=== PATIENT | female | born 1950 | race African-American/Black ===

== ENCOUNTER 2018-09-28 15:52 | Emergency (ER) | payer MEDICARE ==
[2018-09-28 16:25] LABS: BASO % 0.5 % (0.0-1.0); EOS # 0.1 10^3/uL (0.0-0.50); EOS % 1.9 % (0.0-3.0); HEMATOCRIT 40.6 % (36.0-47.0); HEMOGLOBIN 12.9 g/dl (12.0-15.5); LYMPH # 1.7 10^3/uL (1.5-4.5); LYMPH % 25.9 % (24.0-44.0); MEAN CORPUSCULAR HGB CONC 31.8 g/dl (32.0-36.5); MEAN CORPUSCULAR VOLUME 81.9 fl (80.0-96.0); MONO # 0.5 10^3/uL (0.0-0.8); MONO % 8.5 % (0.0-5.0); NEUTROPHILS % 62.9 % (36.0-66.0); PLATELET COUNT, AUTOMATED 172 10^3/uL (150-450); RED BLOOD COUNT 4.96 10^6/uL (4.00-5.40); WHITE BLOOD COUNT 6.4 10^3/uL (4.0-10.0)
[2018-09-28] MEDS ORDERED: JANU50TA4 PO (16:28)
[2018-09-28] MEDS ORDERED: ASPI81TA85 PO (16:28)
[2018-09-28] MEDS ORDERED: D 1010004 PO (16:28)
[2018-09-28] MEDS ORDERED: AMLO10TA5 PO (16:28)
[2018-09-28] MEDS ORDERED: ATOR40TA75 PO (16:28)
--- NOTE | 2018-09-28 16:36 | REP ---
Clinical: Trauma . Comparison: None . Findings: The ventricles, sulci, and cisterns are normal in position and appearance. Hkan-white differentiation is maintained. No acute intracranial hemorrhage, mass/mass effect, pathology or trauma/injury. No evidence for acute infarction. No extra-axial fluid collection. Calvarium is intact. Paranasal sinuses and mastoid air cells are clear. Impression: Normal noncontrast head CT. No evidence for acute intracranial pathology or trauma/injury. Electronically Signed by Teddy Beltran MD 09/28/2018 04:27 P
--- NOTE | 2018-09-28 16:39 | REP ---
Clinical: Trauma. Technique: Axial noncontrast images from the skull base to the thoracic inlet with coronal and sagittal re-formations. Findings: Straightening of normal lordosis is appreciated along with advanced multilevel degenerative disc osteophyte complexes predominantly involving C4-5 through C6-7. Findings include bridging osteophytosis, endplate sclerosis, disc space narrowing, and partially calcified posterior ligament as well as mild hypertrophic facet changes. No acute fracture / compression injury or subluxation. Minimal chronic anterolisthesis at the C3-4 level of approximately 2 mm noted. 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 Impression: Chronic advanced multilevel degenerative changes. Straightening of normal lordosis. No acute fracture / compression injury or subluxation. Electronically Signed by Teddy Beltran MD 09/28/2018 04:30 P
--- NOTE | 2018-09-28 16:46 | REP ---
Clinical: Altered mental status. Technique: AP and lateral. Comparison: None. Findings: Mediastinum and cardiac silhouette are normal. Lung hayes clear. No focal consolidation, effusion, or pneumothorax. Skeletal structures intact. Impression: No acute cardiopulmonary process. Electronically Signed by Teddy Beltran MD 09/28/2018 04:37 P
[2018-09-28 17:10] LABS: ALBUMIN 3.8 GM/DL (3.2-5.2); ALT/SGPT 44 U/L (12-78); BILIRUBIN,DIRECT 0.1 MG/DL (0.0-0.2); BILIRUBIN,TOTAL 0.5 MG/DL (0.2-1.0); BLOOD UREA NITROGEN 22 MG/DL (7-18); CALCIUM LEVEL 9.2 MG/DL (8.8-10.2); CARBON DIOXIDE LEVEL 25 MEQ/L (21-32); CHLORIDE LEVEL 106 MEQ/L (98-107); CK-MB VALUE MASS 1.4 NG/ML (<3.6); CPK CREATINE PHOSPHOKINASE 192 U/L (26-192); CREATININE FOR GFR 1.06 MG/DL (0.55-1.30); GLOMERULAR FILTRATION RATE 54.7 (>45); GLUCOSE, FASTING 233 MG/DL (70-100); MB/CK RELATIVE INDEX 0.73 (< OR =4); POTASSIUM SERUM 4.3 MEQ/L (3.5-5.1); SODIUM LEVEL 142 MEQ/L (136-145); THYROID STIMULATING HORMONE 0.433 uIU/ML (0.358-3.740); TOTAL PROTEIN 8.1 GM/DL (6.4-8.2); TROPONIN I < 0.02 NG/ML (< 0.10)
[2018-09-28 18:30] VITALS: BP 134/115
--- NOTE | 2018-09-29 10:32 | ECGEPIP ---
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
== END 2018-09-28 18:53 | disposition home or self-care (01) ==
LOC: M ED 15:52 → EDBD 15:52 → M ED 18:53
DX: S06.0X0A Concussion without loss of consciousness, initial encounter (principal); S16.1XXA Strain of muscle, fascia and tendon at neck level, initial encounter; S00.03XA Contusion of scalp, initial encounter; W01.198A Fall on same level from slipping, tripping and stumbling with subsequent striking against other object, initial encounter; Y92.818 Other transport vehicle as the place of occurrence of the external cause; I10 Essential (primary) hypertension; E78.5 Hyperlipidemia, unspecified; E11.9 Type 2 diabetes mellitus without complications; Z79.899 Other long term (current) drug therapy; Z79.82 Long term (current) use of aspirin; Z79.84 Long term (current) use of oral hypoglycemic drugs